=== PATIENT | male | born 1985 ===

== ENCOUNTER 2020-04-08 16:02 | Emergency (ER) | payer SELFPAY ==
[~2020-04-08] VITALS: Ht 185.5 cm; Wt 119.2 kg
--- NOTE | 2020-04-08 16:05 | ED General ---
General Stated Complaint: PENILE DISCHARGE Source of Information: Patient History of Present Illness Date Seen by Provider: Apr 08, 2020 Time Seen by Provider: 16:05 Initial Comments Patient is a 34-year-old male who comes to the emergency department with suspected STD. Patient developed some urethral discharge earlier today and some discomfort with urination. He does endorse recent history of new sexual partners without protection. Denies testicular pain abdominal pain skin lesions, fever or any additional complaints today. Allergies and Home Medications Allergies Coded Allergies: Penicillins (Verified Allergy, Unknown, 04/08/20) Patient Home Medication List Home Medication List Reviewed: Yes Review of Systems Review of Systems Constitutional: no symptoms reported Respiratory: no symptoms reported Cardiovascular: no symptoms reported Gastrointestinal: no symptoms reported Genitourinary: see HPI Musculoskeletal: no symptoms reported Skin: no symptoms reported Past Ajqxzug-Chuxte-Xwvjvw Hx Patient Social History Recent Foreign Travel: No Contact w/Someone Who Travel: No Physical Exam Vital Signs Vital Signs - First Documented 04/08/20 16:06 Temp 36.3 Pulse 113 Resp 20 B/P (MAP) 157/103 (121) Pulse Ox 97 O2 Delivery Room Air Capillary Refill : Height, Weight, BMI Height: '" Weight: lbs. oz. kg; BMI Method: General Appearance: No Apparent Distress, WD/WN HEENT: PERRL/EOMI Respiratory: No Accessory Muscle Use Cardiovascular: Regular Rate, Rhythm Gastrointestinal: Non Tender, Soft Extremity: Normal Capillary Refill Neurologic/Psychiatric: Alert, Oriented x3 Progress/Results/Core Measures Suspected Sepsis SIRS Temperature: Pulse: Respiratory Rate: Blood Pressure / Mean: Results/Orders My Orders Orders - JOJO PALOMINO DO Metronidazole Tablet (Flagyl Tablet) (04/08/20 16:15) Ceftriaxone For Im Use (Rocephin For Im (04/08/20 16:15) Lidocaine 1% Inj 20 Ml (Xylocaine 1% Inj (04/08/20 16:15) Azithromycin Tablet (Zithromax Tablet) (04/08/20 16:15) Vital Signs/I&O 04/08/20 16:06 Temp 36.3 Pulse 113 Resp 20 B/P (MAP) 157/103 (121) Pulse Ox 97 O2 Delivery Room Air Capillary Refill : Progress Note : Time: 16:12 Progress Note Patient is seen briefly in the emergency department. He is nontoxic appearing and in no distress. Patient has a story suspicious for STD exposure. He does not have penile, testicular, or inguinal pain. No fever. No abdominal pain. He is requesting empiric treatment for STD only. He is offered to have tests completed but declines. Patient is given Rocephin, azithromycin, Flagyl in the ER. He is advised that his partner should also be treated and then to a 7 days prior to resuming any intercourse. He is agreeable to the plan of care. All of his questions are answered. Departure Impression Primary Impression: STD exposure Disposition: HOME, SELF-CARE Condition: Improved Departure-Patient Inst. Referrals: NO,LOCAL PHYSICIAN (PCP/Family) Primary Care Physician JOJO PALOMINO DO Apr 08, 2020 16:05
[2020-04-08 16:06] VITALS: BP 157/103
--- OUTSIDE RECORDS SUMMARY | 2020-04-08 16:07 | XMS REPORT | Continuity of Care Document ---
Author Organization Unknown Address Unknown Phone Unavailable Allergies There is no data. Medications There is no data. Problems There is no data. Procedures There is no data. Results There is no data. Encounters ACCT No. Visit Date/Time Discharge Status Pt. Type Provider Facility Loc./Unit Complaint [id number] 04/08/2020 16:03:[address] Emergency JOJO PALOMINO DO [facility] ER FS PENILE DISCHARGE
[2020-04-08] MEDS ORDERED: metroNIDAZOLE 500 MG (FLAGYL) TAB PO ONE (16:15)
[2020-04-08] MEDS ORDERED: LIDOCAINE 1% INJ 20 ML 20 ML VIAL INJ ONE (16:15)
[2020-04-08] MEDS ORDERED: cefTRIAXone 250 MG/ML vial (IM ONLY) IM ONE (16:15)
[2020-04-08] MEDS ORDERED: AZITHROMYCIN 250 MG TAB (ZITHROMAX) PO ONE (16:15)
== END 2020-04-08 16:24 | disposition home or self-care (01) ==
LOC: ER FS 16:03
DX: Z20.2 Contact with and (suspected) exposure to infections with a predominantly sexual mode of transmission (principal); Z88.0 Allergy status to penicillin
CPT/HCPCS: 99284